=== PATIENT | male | born 1995 | race Asian ===

== ENCOUNTER 2019-05-25 15:07 | Emergency (ER) | payer OTHER ==
[~2019-05-25] VITALS: Ht 175.3 cm; Wt 140.0 kg
[2019-05-25] MEDS ORDERED: BACITRACIN 0.9 GM PACKET OINTMENT TP ONE (15:45)
[2019-05-25] MEDS ORDERED: PERTUSS(ACELL),DIPH,TET VAC/PF 0.5 ML VIAL IM ONE (15:45)
[2019-05-25] MEDS ORDERED: LIDOCAINE/PF 1% 5 ML VIAL INJ ONE (15:45)
[2019-05-25 16:24] VITALS: BP 125/76
== END 2019-05-25 16:34 | disposition home or self-care (01) ==
LOC: EMS 15:16
DX: S61.511A Laceration without foreign body of right wrist, initial encounter (principal); S60.511A Abrasion of right hand, initial encounter; W25.XXXA Contact with sharp glass, initial encounter; Y93.89 Activity, other specified; Y92.89 Other specified places as the place of occurrence of the external cause; Y99.8 Other external cause status
CPT/HCPCS: 90471; 90715